=== PATIENT | female | born 1970 | race American Indian/Alaskan Native ===

== ENCOUNTER 2017-08-16 11:00 | Outpatient (CLI) | payer MEDICAID | END 2017-08-16 11:01 | disposition home or self-care (01) | LOC: SLR 11:00 | PROVIDERS: ATTEND Specialist | DX: G47.30 Sleep apnea, unspecified (principal); E66.9 Obesity, unspecified; I10 Essential (primary) hypertension | CPT/HCPCS: G0399 ==

== ENCOUNTER → 2017-11-02 | Outpatient (CLI) | payer MEDICAID | LOC: SLR 11:00 | PROVIDERS: ATTEND Specialist | DX: G47.33 Obstructive sleep apnea (adult) (pediatric) (principal); E66.9 Obesity, unspecified; I10 Essential (primary) hypertension | CPT/HCPCS: 95811 ==

== ENCOUNTER 2017-12-09 06:31 | Day surgery (SDC) | payer MEDICAID ==
[2017-12-09] MEDS ORDERED: NACL 0.9% 1000 ML 1,000 ML IV SCH (08:00)
--- NOTE | 2017-12-09 08:09 | Anesthesia Consultation ---
Anesthesia Consult and Med Hx Date of service: 12/09/17 - Airway Anesthetic Teeth Evaluation: Good ROM Head & Neck: Adequate Mental/Hyoid Distance: Adequate Mallampati Class: Class II Intubation Access Assessment: Probably Good - Pulmonary Exam CTA: Yes - Cardiac Exam Cardiac Exam: RRR - Pre-Operative Health Status ASA Pre-Surgery Classification: ASA3 Proposed Anesthetic Plan: MAC - Pulmonary Hx Smoking: No Hx Asthma: Yes Hx Sleep Apnea: Yes - Cardiovascular System Hx Hypertension: Yes - Gastrointestinal Hx Gastroesophageal Reflux Disease: Yes - Other Systems Hx Obesity: Yes
--- NOTE | 2017-12-09 08:09 | Anesthesia Day of Surgery ---
Anesthesia Day of Surgery - Day of Surgery Patient Examined: Yes Patient H&P Reviewed: Yes Patient is NPO: Yes
--- NOTE | 2017-12-09 08:25 | Operative Report ---
Operative Report Operative Report: OPERATIVE REPORT - EGD DATE 12/09/17 SURGERY: Upper endoscopy. SURGEON: Bess Dooley M.D. PRE OP DX: dyspepsia POST OP DX: hiatal hernia TYPE OF ANESTHESIA: MAC. ESTIMATED BLOOD LOSS: None. COMPLICATIONS: None. SPECIMENS REMOVED: None. FINDINGS: 1. Small hiatal hernia. 2. Otherwise, normal esophagus, stomach and first portion of duodenum. INDICATIONS:INDICATION FOR PROCEDURE: Patient is a 47-year-old female with a long history of morbid obesity. She is planned to have a weight loss procedure and is here for preoperative planning EGD. PROCEDURE DETAILS: After consent was reviewed, patient was taken back to the operating room where patient was placed in the left lateral decubitus position and a bite block was placed in the mouth. After a time-out was called, MAC anesthesia was initiated. I then passed the endoscope into her oropharynx, into her esophagus, visualized the entire esophagus, which was all within normal limits. I then visualized the stomach and the first portion of the duodenum and there were no abnormalities I could clearly visualize. I then retroflexed the scope in the stomach and visualized the hiatus and I could see a small hiatal hernia. I then desufflated the stomach and removed the endoscope. Patient tolerated procedure well and was transferred to recovery room in good and stable condition.
--- NOTE | 2017-12-09 08:27 | Discharge Summary ---
Providers - Providers Date of discharge: 12/09/17 Attending physician: SOLA SIMPSON Primary care physician: KIRK TAMAYO Hospitalization Condition: Good Procedures: egd Hospital course: pt had an uneventful egd as part of pre-operative planning for upcoming bariatric surgery Disposition: DC-01 TO HOME OR SELFCARE Core Measure Documentation - Palliative Care Palliative Care/ Comfort Measures: Not Applicable - Core Measures Any of the following diagnoses?: none Exam - Physical Exam Narrative exam: unchanged from pre-op - Constitutional Vitals: Temp Pulse Resp BP Pulse Ox 97.9 F 60 10 L 101/58 97 12/09/17 07:57 12/09/17 07:57 12/09/17 07:57 12/09/17 07:57 12/09/17 07:57 Plan Activity: no restrictions Weight Bearing Status: Full Weight Bearing Diet: regular Follow up with: KIRK TAMAYO MD [Primary Care Provider] - 7 Days
[2017-12-09] MEDS ORDERED: DIPRIVAN 10 MG/ML IV ONE (08:29)
[2017-12-09] MEDS ORDERED: WATER FOR IRRIG STERILE IR ONE (08:34)
[2017-12-09 09:25] VITALS: BP 118/64
--- NOTE | 2017-12-09 12:25 | Post Anesthesia Evaluation ---
- Post Anesthesia Evaluation Patient Participated: Yes Airway Patent: Yes Stable Respiratory Function: Yes Nausea/Vomiting: No Temp > 96.8F: Yes Pain Manageable: Yes Adequeate Hydration: Yes Anesthesia Complications: No Block Receding Appropriately: Not Applicable Patient on Ventilator: No
== END 2017-12-09 06:32 | disposition home or self-care (01) ==
LOC: GIO 06:31
PROVIDERS: ATTEND Surgery
DX: K44.9 Diaphragmatic hernia without obstruction or gangrene (principal); K21.9 Gastro-esophageal reflux disease without esophagitis; E66.01 Morbid (severe) obesity due to excess calories; I10 Essential (primary) hypertension; J45.909 Unspecified asthma, uncomplicated; G47.30 Sleep apnea, unspecified
CPT/HCPCS: 43235; J2704

== ENCOUNTER 2017-12-15 07:32 | Inpatient (IN) | payer MEDICAID ==
[2017-12-15] MEDS ORDERED: LOVENOX SUB-Q NR ×2 (08:09→09:00)
[2017-12-15] MEDS ORDERED: PEPCID IV NR (08:09)
[2017-12-15] MEDS ORDERED: TRANSDERM-SCOP TD NR (08:10)
[2017-12-15] MEDS ORDERED: ANCEF/STERILE WATER 2 GM/20 ML IV NR (08:10)
[2017-12-15] MEDS ORDERED: FLAGYL 500 MG/100 ML 500 MG/100 ML BAG IV NR ×2 (08:12→09:00)
[2017-12-15] MEDS ORDERED: VERSED IV NR (08:36)
--- NOTE | 2017-12-15 08:42 | Anesthesia Consultation ---
Anesthesia Consult and Med Hx - Airway Anesthetic Teeth Evaluation: Good ROM Head & Neck: Adequate Mental/Hyoid Distance: Adequate Mallampati Class: Class II Intubation Access Assessment: Good - Pulmonary Exam CTA: Yes - Cardiac Exam Cardiac Exam: RRR - Pre-Operative Health Status ASA Pre-Surgery Classification: ASA2 Proposed Anesthetic Plan: General - Pulmonary Hx Smoking: No Hx Asthma: Yes Hx Sleep Apnea: Yes - Cardiovascular System Hx Hypertension: Yes (2007) - Central Nervous System Hx Back Pain: Yes Hx Psychiatric Problems: No - Gastrointestinal Hx Gastroesophageal Reflux Disease: Yes - Other Systems Hx Alcohol Use: No Hx Substance Use: No Hx Cancer: No Hx Obesity: Yes
[2017-12-15] MEDS ORDERED: ZOFRAN IV PRN ×2 (08:45→18:52)
[2017-12-15] MEDS ORDERED: DILAUDID IV PRN (08:45)
--- NOTE | 2017-12-15 08:45 | Anesthesia Day of Surgery ---
Anesthesia Day of Surgery - Day of Surgery Patient Examined: Yes Patient H&P Reviewed: Yes Patient is NPO: Yes
[2017-12-15] MEDS ORDERED: ANCEF/STERILE WATER 2 GM/20 ML 2 GM/20 ML SYRINGE IV NR (09:00)
[2017-12-15] MEDS ORDERED: NACL 0.9% 1000 ML 1,000 ML IV SCH (09:00)
[2017-12-15 09:34] LABS: Bilirubin,Urine NEG (Negative); Blood,Urine NEG (Negative); Color,Urine Yellow (Yellow); Mucus,Urine FEW /HPF; Protein,Urine <15 mg/dL mg/dL (Negative); Urobilinogen,Urine < 2.0 mg/dL (<2.0)
[2017-12-15] MEDS ORDERED: LOPRESSOR PO SCH (10:00)
[2017-12-15] MEDS ORDERED: ZESTRIL PO SCH (10:00)
[2017-12-15] MEDS ORDERED: CLARITIN PO SCH (10:00)
[2017-12-15] MEDS ORDERED: XYLOCAINE 1% 20 mL ONE (10:01)
[2017-12-15] MEDS ORDERED: MARCAINE 0.5% 30 ML INFILTRATI ONE (10:01)
[2017-12-15] MEDS ORDERED: ADRENALIN ONE (10:02)
[2017-12-15] MEDS ORDERED: ZEMURON IV ONE (10:12)
[2017-12-15] MEDS ORDERED: XYLOCAINE MPF 2% ONE (10:12)
[2017-12-15] MEDS ORDERED: DILAUDID ONE ×2 (10:14→13:18)
[2017-12-15] MEDS ORDERED: DIPRIVAN 10 MG/ML IV ONE (10:14)
[2017-12-15] MEDS ORDERED: ePHEDrine SULFATE ONE (11:03)
[2017-12-15] MEDS ORDERED: XYLOCAINE 1% 20 mL INFILTRATI ONE (11:12)
[2017-12-15] MEDS ORDERED: MARCAINE 0.5% INFILTRATI ONE (11:14)
[2017-12-15] MEDS ORDERED: NACL 0.9% 1000 ML 1,000 ML ONE (11:14)
[2017-12-15] MEDS ORDERED: NACL 0.9% IR ONE (11:14)
[2017-12-15] MEDS ORDERED: ADRENALIN IV ONE (11:15)
[2017-12-15] MEDS ORDERED: NEO SYNEPHRINE/NS Syringe(OR USE) IV ONE (11:26)
[2017-12-15] MEDS ORDERED: ZOFRAN ONE (11:41)
[2017-12-15] MEDS ORDERED: ROBINUL ONE (11:57)
[2017-12-15] MEDS ORDERED: NEOSTIGMINE ONE ×2 (11:57)
[2017-12-15] MEDS ORDERED: LACTATED RINGERS 1,000 ML ONE (14:08)
--- NOTE | 2017-12-15 15:08 | Post Anesthesia Evaluation ---
- Post Anesthesia Evaluation Patient Participated: Yes Airway Patent: Yes Stable Respiratory Function: Yes Nausea/Vomiting: No Temp > 96.8F: Yes Pain Manageable: Yes Adequeate Hydration: Yes Anesthesia Complications: No Block Receding Appropriately: Not Applicable
--- NOTE | 2017-12-15 17:15 | Operative Report ---
Operative Report Operative Report: Operative Report/ DATE OF PROCEDURE: 12/15/17 PREOPERATIVE DIAGNOSES: Morbid obesity, hiatal hernia POSTOPERATIVE DIAGNOSES: 1.same as pre-op SURGEON: Bess Dooley M.D. [employer] SPECIALIST: Geetha Monge MD PROCEDURE: 1. laparoscopic sleeve gastrectomy 2. Hiatal hernia repair ANESTHESIA: General. ESTIMATED BLOOD LOSS: <5 mL. COMPLICATIONS: None. SPECIMEN: Partial gastrectomy. FINDINGS: hiatal hernia INDICATION FOR PROCEDURE: Patient is a 47 year-old female with a long history of morbid obesity. The patient has tried multiple efforts at weight loss without bed bug exterminator success. Patient is here here today for sleeve gastrectomy. PROCEDURE IN DETAIL: After consent was reviewed, patient was taken back to the operating room, where patient was placed supine on the bed with both arms out. The patient's legs were doubly strapped to the bed. Patient had a foot board in place. Patient had a body warmer placed by anesthesia. Patient was then prepped and draped in normal sterile surgical fashion. After a time-out was called, I made a stab incision in the left subcostal area and placed a Veress needle through this incision and insufflated the abdomen to 18 mmHg pressure. I then counted down a handsbreadth below the xiphoid process in the midline and slightly left lateral injected local anesthetic and made about 1 cm transverse incision. I then used a 10-mm Optiview trocar to enter into the abdomen. I then placed a 45-degree scope through this port and inspected the abdomen. There was no injury on entry of the abdomen. I then placed two 5-mm ports in the right upper quadrant, left upper quadrant and 1 subxiphoid below the costovertebral angle. I then placed a 15-mm port about a hands breadth rleft lateral and inferior to my anterior RUQ port. I then placed left upper quadrant port along the anterior axillary line in a similar fashion. Prior to each port insertion local anesthetic was used at the fascia and skin level. I then placed the liver retractor through the subxiphoid port and placed the patient in full reverse Trendelenburg. The right and left crura were skeletonized accentuating a small hiatal hernia. An anterior cruraplasty was perfromed with a figure-of-8 stitch using surgidac suture to reapproximate the crura. I then identified the pylorus and then counted off 6cm from the pylorus. I then used a LigaSure cutting device to enter into the lesser sac. At that point and then I took down the short gastrics all the way up to the left shira. Then I had anesthesia pass down a 40-Danish bougie along the lesser curvature of the stomach. I made sure everything else was out of the abdomen except the bougie. I then created my gastric sleeve using a 60-mm laparoscopic stapler. Using green, gold, followed by blue loads . The sleeve looked good without any twisting or torsion. I then had anesthesia to remove the bougie. Hemostasis was obtained along the staple line. I then used Tiseel along the entirety of the staple line and some on the liver. I then removed liver grasper and took it off the field. I then removed the stomach through the 15-mm port. I then closed that fascia with a #1 PDS in a [id number] fashion using a Riley-Jacky. I then desufflated the abdomen and then removed all port sites. I then closed the incisions with 4-0 Monocryl in subcuticular fashion. I then dressed the wounds with Dermabond. Patient tolerated the procedure well and was transferred to recovery room in good and stable condition.
[2017-12-15] MEDS ORDERED: MORPHINE IV PRN (18:48)
[2017-12-15] MEDS ORDERED: REGLAN IV PRN (18:54)
[2017-12-15] MEDS: DILAUDID IV PRN ×2 (19:29→21:55)
[2017-12-15] MEDS ORDERED: VASELINE LIP THERAPY TP ONE (19:31)
[2017-12-15] MEDS ORDERED: MYLICON PO PRN (19:36)
[2017-12-15] MEDS ORDERED: APRESOLINE IV PRN (19:51)
[2017-12-15] MEDS ORDERED: NORCO PO PRN (19:54)
[2017-12-15] MEDS: LACTATED RINGERS 1,000 ML IV SCH (21:27)
[2017-12-15] MEDS: FLAGYL 500 MG/100 ML 500 MG/100 ML BAG IV SCH (21:28)
[2017-12-15] MEDS: TORADOL IV SCH (21:29)
[2017-12-15] MEDS: ANCEF/STERILE WATER 2 GM/20 ML 2 GM/20 ML SYRINGE IV SCH (21:30)
[2017-12-15] MEDS: MYLICON PO PRN (21:49)
[2017-12-16] MEDS: TORADOL IV SCH ×3 (02:32→14:40)
[2017-12-16] MEDS: FLAGYL 500 MG/100 ML 500 MG/100 ML BAG IV SCH ×2 (04:22→11:38)
[2017-12-16] MEDS: ANCEF/STERILE WATER 2 GM/20 ML 2 GM/20 ML SYRINGE IV SCH ×2 (04:22→11:38)
[2017-12-16] MEDS: DILAUDID IV PRN (04:27)
[2017-12-16 05:25] LABS: Basophils % (Auto) 0.4 % (0.0-1.8); Eosinophils # (Auto) 0.1 K/mm3 (0.0-0.4); Eosinophils % (Auto) 0.6 % (0.0-4.3); Hematocrit 33.1 % (30.3-42.9); Lymphocytes # (Auto) 2.5 K/mm3 (1.2-5.4); Lymphocytes % (Auto) 22.5 % (13.4-35.0); Mean Corpuscular HGB Conc 33 % (30-34); Mean Corpuscular Hemoglobin 28 pg (28-32); Mean Corpuscular Volume 85 fl (79-97); Monocytes # (Auto) 0.8 K/mm3 (0.0-0.8); Platelet Count 257 K/mm3 (140-440); Red Cell Distribution Width 14.1 % (13.2-15.2)
[2017-12-16 05:46] LABS: BUN/Creatinine Ratio 18; Blood Urea Nitrogen 16 mg/dL (7-17); Calcium 8.3 mg/dL (8.4-10.2); Hemolysis Index 4
[2017-12-16] MEDS: LACTATED RINGERS 1,000 ML IV SCH (06:15)
[2017-12-16] MEDS: MYLICON PO PRN (09:51)
[2017-12-16] MEDS ORDERED: LOVENOX SUB-Q SCH (10:00)
[2017-12-16] MEDS ORDERED: PROTONIX IV SCH (10:00)
[2017-12-16] MEDS: FLONASE NS SCH ×2 (11:37→11:50)
[2017-12-16 14:40] VITALS: BP 122/64
--- NOTE | 2017-12-16 16:52 | Discharge Summary ---
Providers - Providers Date of Admission: 12/15/17 07:32 Attending physician: SOLA SIMPSON Primary care physician: KIRK TAMAYO Hospitalization Procedures: Laparoscopic sleeve gastrectomy with hiatal hernia repair Hospital course: 47 y.o. F admitted to the hospital for surgery. She underwent a laparoscopic sleeve gastrectomy with hiatal hernia repair. On pod 1 she tolerated liquids and she ambulated well on POD 1. Her pain was controlled. She was discharged on POD 1 Disposition: DE-01 TO HOME OR SELFCARE Core Measure Documentation - Palliative Care Palliative Care/ Comfort Measures: Not Applicable - Core Measures Any of the following diagnoses?: none Exam - Constitutional Vitals: Temp Pulse Resp BP Pulse Ox 98.0 F 70 17 122/64 95 12/16/17 13:23 12/16/17 13:23 12/16/17 13:23 12/16/17 13:23 12/16/17 13:23 General appearance: Present: no acute distress, well-nourished - Respiratory Respiratory effort: normal - Cardiovascular Rhythm: regular - Extremities Extremities: no ischemia, No edema - Abdominal General gastrointestinal: Present: soft, other (tender at incision sites. no rebound no guarding. incision sites cdi. ) - Integumentary Integumentary: Present: clear, warm, dry - Musculoskeletal Musculoskeletal: strength equal bilaterally - Psychiatric Psychiatric: appropriate mood/affect, intact judgment & insight, memory intact Plan Activity: other (no lifting >15lbs for 6 weeks ) Diet: other (clear, sugar free liquids. Advance diet per bariatric handout ) Wound: open to air Additional Instructions: Activity: other (no lifting >15lbs for 6 weeks ). Diet : other (clear, sugar free liquids. follow bariatric handout for advancing diet ). Wound: open to air. Additional Instructions: May shower with back to shower tomorrow. May take regular shower Tuesday. Goal fluid intake is 64oz a day. Goal protein intake is 60g. Take a multivitamin. Walk often. Use incentive spirometer. Follow up in office for wound check. Follow up with: KIRK TAMAYO MD [Primary Care Provider] - 7 Days
[2017-12-18] MEDS ORDERED: TRANSDERM-SCOP TD SCH (10:00)
== END 2017-12-16 20:45 | disposition home or self-care (01) | DRG 327 ==
LOC: 3A 07:32 → 3B-SURG 14:42
PROVIDERS: ADMIT Surgery; ATTEND Surgery
PROC: 0DB64Z3 Excision of Stomach, Percutaneous Endoscopic Approach, Vertical (ICD-10-PCS; principal; 2017-12-15)
PROC: 0BQT4ZZ Repair Diaphragm, Percutaneous Endoscopic Approach (ICD-10-PCS; 2017-12-15)
PROC: 5A09357 Assistance with Respiratory Ventilation, Less than 24 Consecutive Hours, Continuous Positive Airway Pressure (ICD-10-PCS; 2017-12-15)
DX: K44.9 Diaphragmatic hernia without obstruction or gangrene (principal); Z68.41 Body mass index [BMI] 40.0-44.9, adult; E66.01 Morbid (severe) obesity due to excess calories; J45.909 Unspecified asthma, uncomplicated; I10 Essential (primary) hypertension; K21.9 Gastro-esophageal reflux disease without esophagitis; Z90.710 Acquired absence of both cervix and uterus; G47.33 Obstructive sleep apnea (adult) (pediatric); Z98.51 Tubal ligation status; Z71.3 Dietary counseling and surveillance; Z82.49 Family history of ischemic heart disease and other diseases of the circulatory system; Z83.3 Family history of diabetes mellitus; Z91.09 Other allergy status, other than to drugs and biological substances
CPT/HCPCS: 36415; 80048; 81001; 85025; 88307; 94660; 94760; C9113; C9250; J0171; J0360; J0690; J1170; J1650; J1885; J2250; J2370; J2405; J2704; J2710; J2765; J7030; J7120

== ENCOUNTER 2022-06-27 11:00 | Outpatient (CLI) | payer MEDICAID | END 2022-06-27 11:01 | disposition home or self-care (01) | LOC: SLR 11:00 | PROVIDERS: ATTEND Specialist | DX: G47.30 Sleep apnea, unspecified (principal) | CPT/HCPCS: G0399 ==

== ENCOUNTER 2022-06-29 11:00 | Outpatient (CLI) | payer MEDICAID | END 2022-06-29 11:01 | disposition home or self-care (01) | LOC: SLR 11:00 | PROVIDERS: ATTEND Specialist | DX: G47.33 Obstructive sleep apnea (adult) (pediatric) (principal) | CPT/HCPCS: 95811 ==